=== PATIENT | male | born 1955 | race African-American/Black ===

== ENCOUNTER 2025-03-15 12:05 | Day surgery (SDC) | payer MEDICARE, SELFPAY ==
[2025-03-12 11:58] VITALS: BMI 22.4
[2025-03-15] VITALS (9 sets, daily range): BP systolic 119–181; BP diastolic 72–93; PULSE 55–66; RESP 12–18; TEMP 36.2–36.7; O2SAT 93–99; BMI 21.4
[2025-03-15] MEDS: SODIUM CHLORIDE 0.9% 500 ML 500 ML 20 ML IV (14:03)
[2025-03-15] MEDS: MIDAZOLAM INJ 1 MG/ML VIAL 2 ML (ASD USE ONLY) 2 MG IVP (14:03)
[2025-03-15] MEDS: fentaNYL CIT INJ 50 mCg/ML AMP 2ML (ASD USE ONLY) IVP (14:04)
== END 2025-03-15 14:38 | disposition home or self-care (01) ==
PROVIDERS: PCP Family Medicine; Referring Provider Specialist; Visit Provider Specialist
PROC: 0DBE8ZX Excision of Large Intestine, Via Natural or Artificial Opening Endoscopic, Diagnostic (ICD-10-PCS; CPT 45380; principal; 2025-03-15 12:15)
DX: Z12.11 Encounter for screening for malignant neoplasm of colon (principal); K64.1 Second degree hemorrhoids; K57.30 Diverticulosis of large intestine without perforation or abscess without bleeding
CPT/HCPCS: G0121; A4649; J1200; J2250; J3010; J7999